=== PATIENT | male | born 1955 | race Caucasian/White ===

== ENCOUNTER → 2020-11-03 | Day surgery (SDC) | payer MEDICARE ==
[2020-11-01 10:48] VITALS: BMI 25.7
[~2020-11-03] MED LIST: LACTATED RINGERS 1,000 ML IV ONE; LACTATED RINGERS 1,000 ML IV SCH; LIDOCAINE 1% INJ 10MG/ML (20 ML MDV) ONE; PROPOFOL 10 MG/ML 20 ML VIAL IV ONE
[2020-11-03 09:40] VITALS: TEMP 97.7
--- NOTE | 2020-11-03 10:57 | P.PCN ---
Date of Procedure: 11/03/20 Procedure(s) Performed: BRIEF HISTORY: Patient is a 65-year-old pleasant male scheduled for an elective colonoscopy as a part of evaluation of prior history of colon polyps. PROCEDURE PERFORMED: Colonoscopy with snare polypectomy. PREOPERATIVE DIAGNOSIS: History of colon polyps. IV sedation per Anesthesia. PROCEDURE: After informed consent was obtained, the patient, was brought into the endoscopy unit. IV sedation was administered by Anesthesia under continuous monitoring. Digital rectal examination was normal. Initially the Olympus CF-160 flexible video colonoscope was then inserted in the rectum, gradually advanced into the cecum without any difficulty. Careful examination was performed as the scope was gradually being withdrawn. Ileocecal valve and the appendiceal orifice were visualized and appeared normal. Prep was excellent. Mucosa of the cecum, ascending colon, transverse colon, descending colon appeared normal. In the sigmoid colon there was a 7-8 mm polyp that was removed by snare polypectomy. There are moderate sigmoid diverticulosis seen. Rest of the, sigmoid colon, and rectum appeared normal. Retroflexion was performed in the rectum and no lesions were seen. The patient tolerated the procedure well. IMPRESSION: 7-8 mm; sigmoid polyp status post polypectomy Scattered sigmoid diverticulosis RECOMMENDATIONS: Findings of this examination were discussed with the patient as well as his family. He was advised to follow with the the biopsy results. If the biopsy shows an adenoma he can have a repeat colonoscopy in 5 years.
[2020-11-03 11:16] VITALS: BP 131/62; PULSE 60; RESP 16
== END ==
LOC: ORWHC2ENDO 09:28
PROVIDERS: ATTEND Internal Medicine Gastroenterology
DX: Z12.11 Encounter for screening for malignant neoplasm of colon (principal); K63.5 Polyp of colon; K57.90 Diverticulosis of intestine, part unspecified, without perforation or abscess without bleeding; I10 Essential (primary) hypertension; E78.5 Hyperlipidemia, unspecified; Z79.899 Other long term (current) drug therapy; Z79.82 Long term (current) use of aspirin
CPT/HCPCS: 88305; 45385; J2001; J2704

== ENCOUNTER 2021-02-14 13:14 | Emergency (ER) | payer MEDICARE ==
[2021-02-14 14:22] LABS: Basophils % (A) 0 %; Eosinophils # (A) 0.1 k/uL (0-0.7); Eosinophils % (A) 1 %; HCT 43.9 % (39.0-53.0); HGB 14.5 gm/dL (13.0-17.5); Lymphocytes # (A) 1.7 k/uL (1.0-4.8); Lymphocytes % (A) 16 %; MCHC 33.1 g/dL (31.0-37.0); MCV 93.7 fL (80.0-100.0); Mean Platelet Volume 8.5; Monocytes # (A) 0.4 k/uL (0-1.0); Monocytes % (A) 4 %; Neutrophils # (A) 8.1 k/uL (1.3-7.7); Neutrophils % (A) 77 %; Platelet Count 253 k/uL (150-450); RBC 4.69 m/uL (4.30-5.90); RDW 12.6 % (11.5-15.5); WBC 10.5 k/uL (3.8-10.6)
[2021-02-14 14:41] LABS: ALT 32 U/L (4-49); AST 38 U/L (17-59); African American GFR (CKD) >90 (>60 ml/min/1.73 sqM); Albumin 4.5 g/dL (3.5-5.0); Alkaline Phosphatase 53 U/L (38-126); Amylase 53 U/L (30-110); Anion Gap 8 mmol/L; Blood Urea Nitrogen 20 mg/dL (9-20); Calcium 9.5 mg/dL (8.4-10.2); Carbon Dioxide 26 mmol/L (22-30); Chloride 99 mmol/L (98-107); Glucose 159 mg/dL (74-99); Lipase 103 U/L (23-300); Non-African American GFR(CKD) >90 (>60 ml/min/1.73 sqM); Potassium 4.3 mmol/L (3.5-5.1); Sodium 133 mmol/L (137-145); Total Bilirubin 0.7 mg/dL (0.2-1.3); Total Protein 7.2 g/dL (6.3-8.2)
[2021-02-14] MEDS ORDERED: HYDROmorphone 1 MG/ML 1 ML SYRINGE IVP STA (15:10)
[2021-02-14] MEDS ORDERED: ONDANSETRON 4 MG/2 ML VIAL IVP STA (15:10)
[2021-02-14] MEDS ORDERED: SODIUM CHLORIDE 0.9% 1,000 ML IV ONE (15:11)
--- NOTE | 2021-02-14 15:17 | ED ---
General Adult HPI - General Chief complaint: Abdominal Pain Stated complaint: bowel problems Time Seen by Provider: 02/14/21 15:04 Source: patient, RN notes reviewed, old records reviewed Mode of arrival: ambulatory Limitations: no limitations - History of Present Illness Initial comments: This is a 65 year old white male, alert and oriented x4, presents to the ER with c/o LUQ and LLQ abdominal pain for 4 days. He states has nausea no vomiting. Denies fevers. He has history of same and his PCP usually prescribes antibiotics diverticulitis. States stool is mucous like. he also has a history of bladder cancer and has an appointment with urology coming up, he will be 5 years clear. -: days(s) (4) Location: abdomen Radiation: non-radiation Severity scale (1-10): 9 Quality: other (cramping) Consistency: constant Improves with: none Worsens with: none Associated Symptoms: nausea/vomiting (no vomiting) - Related Data Home Medications Medication Instructions Recorded Confirmed Aspirin [Adult Low Dose Aspirin EC] 81 mg PO DAILY 11/01/20 02/14/21 Simvastatin [Zocor] 20 mg PO HS 11/01/20 02/14/21 Cetirizine HCl [Zyrtec] 10 mg PO DAILY 02/14/21 02/14/21 Ciprofloxacin HCl [Cipro] 500 mg PO Q12HR 02/14/21 02/14/21 Multivitamins, Thera [Multivitamin 1 tab PO DAILY 02/14/21 02/14/21 (formulary)] [place]-3 Fatty Acids/Fish Oil [Fish 1 cap PO DAILY 02/14/21 02/14/21 Oil 1,000 mg Softgel] metroNIDAZOLE [Flagyl] 500 mg PO TID 02/14/21 02/14/21 Allergies Allergy/AdvReac Type Severity Reaction Status Date / Time No Known Allergies Allergy Verified 02/14/21 15:25 Review of Systems ROS Statement: Those systems with pertinent positive or pertinent negative responses have been documented in the HPI. ROS Other: All systems not noted in ROS Statement are negative. Past Medical History Past Medical History: Cancer, Hyperlipidemia, Hypertension Additional Past Medical History / Comment(s): HX BLADDER CA, HX POLYPS, DIVERTICULITIS, History of Any Multi-Drug Resistant Organisms: None Reported Past Surgical History: Bladder Surgery, Hernia Repair Additional Past Surgical History / Comment(s): MULTIPLE HERNIA SX, SX FOR BLAD ROSALBA CA 2014, COLONOSCOPY Past Anesthesia/Blood Transfusion Reactions: No Reported Reaction Past Psychological History: No Psychological Hx Reported Smoking Status: Former smoker Past Alcohol Use History: Occasional Past Drug Use History: None Reported - Past Family History Mother Family Medical History: No Reported History General Exam Limitations: no limitations General appearance: alert, in no apparent distress Head exam: Present: atraumatic, normocephalic, normal inspection Eye exam: Present: normal appearance, PERRL, EOMI. Absent: scleral icterus, conjunctival injection, periorbital swelling ENT exam: Present: normal exam, normal oropharynx, mucous membranes moist Neck exam: Present: normal inspection, full ROM. Absent: tenderness, mening ismus, lymphadenopathy Respiratory exam: Present: normal lung sounds bilaterally. Absent: respiratory distress, wheezes, rales, rhonchi, stridor Cardiovascular Exam: Present: regular rate, normal rhythm, normal heart sounds. Absent: systolic murmur, diastolic murmur, rubs, gallop, clicks GI/Abdominal exam: Present: soft, tenderness (LUQ LLQ), normal bowel sounds. Absent: rebound, rigid, mass Back exam: Present: normal inspection, full ROM. Absent: tenderness, CVA tenderness (R), CVA tenderness (L), rash noted Neurological exam: Present: alert, oriented X3, CN II-XII intact Psychiatric exam: Present: normal affect, normal mood Skin exam: Present: warm, dry, intact, normal color. Absent: rash, cyanosis, diaphoretic, petechiae, pallor Course Vital Signs 02/14/21 02/14/21 13:53 18:00 Temperature 98.8 F 98.3 F Pulse Rate 79 70 Respiratory 20 18 Rate Blood Pressure 137/86 133/80 O2 Sat by Pulse 98 97 Oximetry Medical Decision Making - Medical Decision Making there is no evidence of leukocytosis however patient does have a history of diverticulitis and CT shows diverticulitis. Family at bedside states that she did get ahold of Dr. Jeffers who called in a prescription for Cipro and Flagyl and he does have an appointment with him on Friday this week. physical abdomen is soft and nondistended at discharge. He has no further nausea and has had no vomiting in the emergency room. He was directed to return to the emergency room with any new or worsening symptoms. patient is agreeable to being discharged home . Case discussed with Dr. Reis - Lab Data Result diagrams: 02/14/21 13:58 02/14/21 13:58 Lab Results 02/14/21 02/14/21 02/14/21 Range/Units 13:58 13:58 15:24 WBC 10.5 (3.8-10.6) k/uL RBC 4.69 (4.30-5.90) m/uL Hgb 14.5 (13.0-17.5) gm/dL Hct 43.9 (39.0-53.0) % MCV 93.7 (80.0-100.0) fL MCH 31.0 (25.0-35.0) pg MCHC 33.1 (31.0-37.0) g/dL RDW 12.6 (11.5-15.5) % Plt Count 253 (150-450) k/uL MPV 8.5 Neutrophils % 77 % Lymphocytes % 16 % Monocytes % 4 % Eosinophils % 1 % Basophils % 0 % Neutrophils # 8.1 H (1.3-7.7) k/uL Lymphocytes # 1.7 (1.0-4.8) k/uL Monocytes # 0.4 (0-1.0) k/uL Eosinophils # 0.1 (0-0.7) k/uL Basophils # 0.0 (0-0.2) k/uL Sodium 133 L (137-145) mmol/L Potassium 4.3 (3.5-5.1) mmol/L Chloride 99 (98-107) mmol/L Carbon Dioxide 26 (22-30) mmol/L Anion Gap 8 mmol/L BUN 20 (9-20) mg/dL Creatinine 0.60 L (0.66-1.25) mg/dL Est GFR (CKD-EPI)AfAm >90 (>60 ml/min/1.73 sqM) Est GFR (CKD-EPI)NonAf >90 (>60 ml/min/1.73 sqM) Glucose 159 H (74-99) mg/dL Plasma Lactic Acid Nikita 0.8 (0.7-2.0) mmol/L Calcium 9.5 (8.4-10.2) mg/dL Total Bilirubin 0.7 (0.2-1.3) mg/dL AST 38 (17-59) U/L ALT 32 (4-49) U/L Alkaline Phosphatase 53 (38-126) U/L Total Protein 7.2 (6.3-8.2) g/dL Albumin 4.5 (3.5-5.0) g/dL Amylase 53 (30-110) U/L Lipase 103 (23-300) U/L Disposition Clinical Impression: Diverticulitis Disposition: HOME SELF-CARE Condition: Good Instructions (If sedation given, give patient instructions): Diverticulitis (ED) Additional Instructions: take medication as prescribed by your primary care Dr and follow-up as scheduled Friday. Return to the emergency room with any new or worsening symptoms including fever increased pain Is patient prescribed a controlled substance at d/c from ED?: No Referrals: Shay Jeffers MD [Primary Care Provider] - 1-2 days Time of Disposition: 17:38
--- NOTE | 2021-02-14 16:25 | CT ---
EXAMINATION TYPE: CT abdomen pelvis wo con DATE OF EXAM: 02/14/2021 COMPARISON: 09/01/2013 INDICATION: LLQ pain DLP: 745.6 mGycm, Automated exposure control for dose reduction was used. CONTRAST: 0 mL of Isovue 300. Study performed without Oral Contrast TECHNIQUE: Axial images were obtained from above the diaphragm to the pubic rami in the axial plane a t 5 mm thick sections. Reconstructed images are reviewed on the computer in the coronal plane. FINDINGS: Limited CT sections are obtained the lung bases. The lung bases are clear. CT ABDOMEN: Liver: Normal Spleen: Normal Pancreas: Normal Adrenal glands: The adrenal glands are normal. Gallbladder: Normal Kidneys: No masses are evident. No hydronephrosis is present. No cysts are present. Delayed images were obtained through the kidneys, which remain unremarkable. Aorta: Vascular calcification is within the aorta. Inferior vena cava: Normal. CT PELVIS: There is thickening of the distal colon extending towards the colon sigmoid colon junction. Diverticu li are present. There is abundant inflammatory change adjacent. No free air is evident. No abscess fo rmation is identified. Findings are compatible with acute diverticulitis. There are additional diverticular changes without diverticulitis within the sigmoid colon. Fecal debr is is within the colon. No dilated small bowel loops are evident. Status bilateral contrast. Appendix: Not identified. Postsurgical change may be present. Correlate with history. No suspicious d ilated tubular structure or inflammatory changes are evident. Urinary bladder: Normal. Genitourinary structures: Prostate hypertrophy is present with calcification. Osseous structures: No suspicious lytic or sclerotic lesions. IMPRESSIONS: 1. Inflammatory changes adjacent to diverticulum within the distal descending colon extending to the sigmoid colon. Findings are compatible with moderate acute diverticulitis. No free air or abscess fo rmation is identified at this time.
[2021-02-14 18:04] VITALS: BP 133/80; PULSE 70; RESP 18; TEMP 98.3
== END 2021-02-14 18:04 | disposition home or self-care (01) ==
LOC: EC 13:14
DX: K57.92 Diverticulitis of intestine, part unspecified, without perforation or abscess without bleeding (principal); I10 Essential (primary) hypertension; E78.5 Hyperlipidemia, unspecified; Z79.82 Long term (current) use of aspirin; Z87.891 Personal history of nicotine dependence; Z85.51 Personal history of malignant neoplasm of bladder
CPT/HCPCS: 99284; 96374; 96375; 96361; 36415; 80053; 82150; 83605; 83690; 85025; 74176; J2405; J1170

== ENCOUNTER → 2021-12-28 | Outpatient (CLI) | payer MEDICARE ==
--- NOTE | 2021-12-28 10:41 | CA ---
Stress Echo Report Fran Watts Age: 66 Gender: M : 1955 Exam Date: 12/28/2021 09:30 Exam Location: [place] Stress Ht (in): 71 Wt (lb): 187 Ordering Physician: Shay Jeffers MD Referring Physician: Elizabeth Mckenzie Pump House Operator: NELL, Technologist Procedure CPT: Indication: R07.9 CHEST PAIN ICD-9 Codes: Rhythm: Patient History: Cardiac Medications: Medications in past 24 hours: Contrast: Stress Results Protocol: Dharmesh Total dose(mL): Exercise Duration (min:sec): Max ST Depression (mm): Angina Score: Correa Score: METS: 11.9 Resting HR: 73 Resting BP: 150 / 98 Peak HR: 148 Peak BP: 197 / 97 Max Predicted HR: 153 97 % Max Predicted HR Target HR: 130 Double Product: 00066 Stress Summary: BP Response: Reason for Termination: Reached target heart rate or work-load Cardiac Symptoms: Test terminated after reaching target heart rate (85% max predicted) ECG Analysis Resting ECG: Normal sinus rhythm normal axis normal intervals with poor R-wave progression Stress ECG: No evidence of ST segment depression Arrhythmia: Rare PVCs Echo Analysis Resting Echo: Normal left ventricular size wall motion systolic function Peak Echo Analysis: Normal hyperdynamic response of all segments of myocardium MEASUREMENTS (Male/Female) Normal Values CONCLUSIONS Good exercise tolerance Negative stress test by EKG criteria Negative stress echo Dr. Abilio Murry MD (Electronically Signed) Final Date: 28 December 2021 10:40
== END | disposition home or self-care (01) ==
LOC: RADNMMAIN 09:02
PROVIDERS: ATTEND Internal Medicine Geriatric Medicine
DX: R07.9 Chest pain, unspecified (principal)
CPT/HCPCS: 93351

== ENCOUNTER → 2023-08-15 | Day surgery (SDC) | payer MEDICARE ==
[~2023-08-15] MED LIST changes: -LACTATED RINGERS 1,000 ML IV ONE; -LACTATED RINGERS 1,000 ML IV SCH
[2023-08-15] MEDS: LACTATED RINGERS 1,000 ML IV SCH (08:18)
[2023-08-15 09:04] VITALS: RESP 16; TEMP 97
--- NOTE | 2023-08-15 09:13 | P.PCN ---
Date of Procedure: 08/15/23 Procedure(s) Performed: BRIEF HISTORY: Patient is a 68-year-old pleasant white male male scheduled for an elective colonoscopy as a part of evaluation of recent episode of acute sigmoid diverticulitis 2 months ago. PROCEDURE PERFORMED: Colonoscopy with snare polypectomy. PREOPERATIVE DIAGNOSIS: Recent episode of acute sigmoid diverticulitis. IV sedation per Anesthesia. PROCEDURE: After informed consent was obtained, the patient, was brought into the endoscopy unit. IV sedation was administered by Anesthesia under continuous monitoring. Digital rectal examination was normal. Initially the Olympus CF-160 flexible video colonoscope was then inserted in the rectum, gradually advanced into the cecum without any difficulty. Careful examination was performed as the scope was gradually being withdrawn. Ileocecal valve and the appendiceal orifice were visualized and appeared normal. Prep was excellent. Mucosa of the cecum, ascending colon,pain normal. In the transverse colon there was a 4 limited polyp that was removed by cold snare polypectomy. Rest of the transverse colon, descending colon, sigmoid colon, and rectum appeared normal. in the distal sigmoid colon there was a 4 mm polyp that was removed by cold snare polypectomy. Scattered left-sided diverticulosis seen.Retroflexion was performed in the rectum and no lesions were seen. The patient tolerated the procedure well. IMPRESSION: 4 mm transverse colon polyp status post snare polypectomy 4 mm distal sigmoid colon polyp status post polypectomy Moderate left-sided diverticulosis RECOMMENDATIONS: Findings of this examination were discussed with the patient as well as a family. He was advised to follow with the biopsy results. If the biopsy result reveales adenoma he can have a repeat colonoscopy in 5 years.
[2023-08-15 10:21] VITALS: BP 123/61; PULSE 71
== END ==
LOC: ORWHC2ENDO 07:59
PROVIDERS: ATTEND Internal Medicine Gastroenterology
DX: K63.5 Polyp of colon (principal); K57.30 Diverticulosis of large intestine without perforation or abscess without bleeding; I10 Essential (primary) hypertension; E78.5 Hyperlipidemia, unspecified; M19.90 Unspecified osteoarthritis, unspecified site; Z85.51 Personal history of malignant neoplasm of bladder; Z86.010 Personal history of colon polyps; Z79.899 Other long term (current) drug therapy
CPT/HCPCS: 88305; 45385; J2001; J2704